=== PATIENT | female | born 1990 | race Hispanic/Latino ===

== ENCOUNTER 2019-02-26 10:48 | Outpatient (CLI) | payer BC, MEDICAID ==
--- NOTE | 2019-02-26 11:49 | ULT ---
EXAM: Obstetrical ultrasound greater than 14 weeks: HISTORY: Anatomy, size, cervical length COMPARISON: None. FINDINGS: Single viable intrauterine fetus is noted in Cephalic presentation. heart rate equals 145 bpm. Placenta is anterior. Cervical length is 4.1 cm. Amniotic fluid is Within normal limits. anatomy: Visualized brain, 4 chamber heart, chest, three-vessel cord, cord insert, stomach, bladder, kid neys, spine, and extremity regions are unremarkable. biometry: BPD: 5.5 cm--22 weeks 0 days Head circumference: 20.8 cm--22 weeks 6 days Abdominal circumference: 18.0 cm--22 weeks 6 days Femur length:4 cm--22 weeks 0 days IMPRESSION: Gestational age by ultrasound: 22 weeks 6 days CRISTO by ultrasound: 06/26/2019 Estimated weight: 545 g 16 percentile
== END 2019-02-26 10:49 | disposition home or self-care (01) ==
LOC: SCSULT 10:48
PROVIDERS: ATTEND Family Medicine
DX: O09.892 Supervision of other high risk pregnancies, second trimester (principal); Z3A.22 22 weeks gestation of pregnancy
CPT/HCPCS: 76805